=== PATIENT | female | born 1940 | race Caucasian/White ===

== ENCOUNTER 2018-10-20 08:50 | Day surgery (SDC) | payer MEDICARE ==
[2018-10-18 10:49] VITALS: BMI 29.2
[~2018-10-20 08:50] MED LIST: LACTATED RINGERS 1,000 ML IV SCH
[2018-10-20 09:13] VITALS: TEMP 98.7
[2018-10-20] MEDS ORDERED: LIDOCAINE 1% 20 ML VIAL (10MG/ML) FOR IV START INTRADERMA ONE (09:17)
[2018-10-20] MEDS ORDERED: PROPOFOL 10 MG/ML 20 ML VIAL IV ONE (09:27)
[2018-10-20] MEDS ORDERED: LIDOCAINE 1% INJ 10MG/ML (20 ML MDV) ONE (09:27)
--- NOTE | 2018-10-20 09:32 | P.GSHP ---
History of Present Illness H&P Date: 10/20/18 Chief Complaint: gerd 78-year-old female here today for upper endoscopy. Patient is a history of hiatal hernia, reflux, and Wolff's esophagus. Last upper endoscopy 4 years ago. 2 brothers have passed with esophageal cancer. Past Medical History Past Medical History: GERD/Reflux, Osteoarthritis (OA), Pneumonia, Thyroid Disorder Additional Past Medical History / Comment(s): hx migraines, hiatal hernia, IBS, hx anemia, "low sodium", "retocecal appendix" History of Any Multi-Drug Resistant Organisms: None Reported Past Surgical History: Cholecystectomy, Hysterectomy, Tonsillectomy Additional Past Surgical History / Comment(s): D&C x 3, florentino cataracts Past Anesthesia/Blood Transfusion Reactions: Motion Sickness Smoking Status: Never smoker - Past Family History Brother(s) Family Medical History: Cancer Mother Family Medical History: Cancer Medications and Allergies Home Medications Medication Instructions Recorded Confirmed Type Atorvastatin [Lipitor] 10 mg PO DAILY 10/18/18 10/20/18 History Cholecalciferol (Vitamin D3) 5,000 unit PO DAILY 10/18/18 10/20/18 History [Vitamin D3] FLUoxetine HCL [PROzac] 20 mg PO BID 10/18/18 10/20/18 History Levothyroxine Sodium [Levoxyl] 100 mcg PO DAILY 10/18/18 10/20/18 History Multivit-Min/Iron/Folic/Lutein 1 each PO DAILY 10/18/18 10/20/18 History [Centrum Silver Women Tablet] Omeprazole [PriLOSEC] 20 mg PO BID 10/18/18 10/20/18 History Propranolol [Inderal] 20 mg PO BID 10/18/18 10/20/18 History clonazePAM 0.25 mg PO BID 10/18/18 10/20/18 History traZODone HCL 100 mg PO HS 10/18/18 10/20/18 History Allergies Allergy/AdvReac Type Severity Reaction Status Date / Time No Known Allergies Allergy Verified 10/18/18 10:36 Surgical - Exam Vital Signs Temp Pulse Resp BP Pulse Ox 98.7 F 78 16 139/63 96 10/20/18 09:06 10/20/18 09:06 10/20/18 09:06 10/20/18 09:06 10/20/18 09:06 Physical exam: General: Well-developed, well-nourished HEENT: Normocephalic, sclerae nonicteric Abdomen: Nontender, nondistended Extremities: No edema Neuro: Alert and oriented Assessment and Plan (1) GERD (gastroesophageal reflux disease) Narrative/Plan: Will proceed with upper endoscopy at this time Current Visit: Yes Status: Acute Code(s): K21.9 - GASTRO-ESOPHAGEAL REFLUX DISEASE WITHOUT ESOPHAGITIS SNOMED Code(s): 586799699
--- NOTE | 2018-10-20 09:49 | P.PCN ---
Date of Procedure: 10/20/18 Procedure(s) Performed: Preoperative Dx: GERD, Wolff's Postoperative Dx: Gastritis, hiatal hernia, Wolff's esophagus Procedure: EGD with Bx Anesthesia: Sedation Endoscopist: Dr. Escobar Specimens: Antrum, Wolff's Endoscopic Procedure: The patient was on the endoscopy table in the left decubitus position. The Olympus gastroscope was inserted into the oropharynx and passed under direct visualization to the region of the third portion of the duodenum. From that point the scope was slowly withdrawn inspecting all surfaces carefully. There were no neoplastic inflammatory or polypoid lesions throughout the duodenum. The pylorus was widely patent. The stomach was carefully inspected. There was gastritis present. A biopsy of the antrum took place to rule out H. pylori. Retroflexion revealed a moderate sized hiatal hernia. The diaphragmatic hiatus was present at 39 cm while the GE junction was present at 34 cm. There was no inflammatory changes above the diaphragm in the stomach. The patient had evidence of Wolff's esophagus. This was free of acute inflammatory changes or nodularity. There were no ulcers. This measured approximately 3 cm in length. Circumferential biopsies were taken in 4 quadrants every centimeter. Specimens were sent to pathology. The remainder the esophagus appeared normal. The patient was then taken to the recovery room in stable condition per anesthesia guidelines. Recommendations: Await biopsy results. Continue antiacid therapy.
[2018-10-20 09:53] VITALS: RESP 18
[2018-10-20 10:11] VITALS: BP 132/65; PULSE 54
== END 2018-10-20 10:34 | disposition home or self-care (01) ==
LOC: ORWHC2ENDO 08:50
PROVIDERS: ATTEND Surgery
DX: K22.70 Barrett's esophagus without dysplasia (principal); K44.9 Diaphragmatic hernia without obstruction or gangrene; K29.50 Unspecified chronic gastritis without bleeding; E07.9 Disorder of thyroid, unspecified; K21.9 Gastro-esophageal reflux disease without esophagitis; K58.9 Irritable bowel syndrome, unspecified; M19.90 Unspecified osteoarthritis, unspecified site; Z80.0 Family history of malignant neoplasm of digestive organs; Z90.49 Acquired absence of other specified parts of digestive tract; Z98.42 Cataract extraction status, left eye; Z98.41 Cataract extraction status, right eye; Z79.899 Other long term (current) drug therapy
CPT/HCPCS: 88305; 43239; J2001; J2704

== ENCOUNTER → 2020-08-29 | Day surgery (SDC) | payer MEDICARE ==
[2020-08-28 10:15] VITALS: BMI 28.3
[~2020-08-29] MED LIST changes: +LIDOCAINE 2% (PF) 20 MG/ML 5 ML VIAL ONE; +PROPOFOL 10 MG/ML 20 ML VIAL IV ONE
[2020-08-29 11:07] VITALS: TEMP 97
--- NOTE | 2020-08-29 11:42 | P.PCN ---
Date of Procedure: 08/29/20 Procedure(s) Performed: BRIEF HISTORY: Patient is a 80-year-old, pleasant, white female scheduled for an upper endoscopy as a part of evaluation of GERD and Wolff's esophagus. She remains on Prilosec 20 mg daily. PROCEDURE PERFORMED: Esophagogastroduodenoscopy with biopsy. PREOPERATIVE DIAGNOSIS: GERD/Wolff's esophagus. IV sedation per anesthesia. PROCEDURE: After informed consent was obtained, the patient was brought into the endoscopy unit. IV sedation was administered by Anesthesia under continuous monitoring. Initially the Olympus GIF-140 video endoscope was inserted into the mouth. Esophagus intubated without any difficulty. It was gradually advanced into the stomach and duodenum and carefully examined. The bulb and the second part of the duodenum appeared normal. The scope at this time was withdrawn to the stomach, adequately insufflated with air, and upon careful examination, mucosa of the antrum, body, cardia and the fundus appeared normal. There was a moderate size paraesophageal hiatal hernia noted. The scope was withdrawn into the esophagus. The GE junction was located at 31 cm from the incisors. There was a long segment Wolff's esophagus extending from 20-31 cm from the incisors and multiple biopsies were done in this area to rule out dysplasia. There was no ulceration or nodularity identified. The esophagus appeared normal. There were no erosions or ulcerations seen and the patient tolerated the procedure well. IMPRESSION: 1. Long segment Wolff's esophagus extending from 27-31 cm from the incisors status post multiple biopsies to rule out dysplasia 2. Moderate size paraesophageal hiatal hernia.. RECOMMENDATIONS: The findings of this examination were discussed with the patient as well as a family. She was advised to follow with the biopsy results. She will continue with omeprazole 20 mg daily and follow antireflux. If the biopsy does not show any evidence of dysphagia she can have a repeat upper endoscopy in 2-3 years.
[2020-08-29 11:49] VITALS: RESP 17
[2020-08-29 12:04] VITALS: BP 166/79; PULSE 56
== END ==
LOC: ORWHC2ENDO 09:42
PROVIDERS: ATTEND Internal Medicine Gastroenterology
DX: K22.70 Barrett's esophagus without dysplasia (principal); K44.9 Diaphragmatic hernia without obstruction or gangrene; K21.9 Gastro-esophageal reflux disease without esophagitis; I10 Essential (primary) hypertension; E78.5 Hyperlipidemia, unspecified; E07.9 Disorder of thyroid, unspecified; F32.9 Major depressive disorder, single episode, unspecified; Z90.49 Acquired absence of other specified parts of digestive tract; Z98.42 Cataract extraction status, left eye; Z98.41 Cataract extraction status, right eye; Z79.899 Other long term (current) drug therapy
CPT/HCPCS: 88305; 43239; J2704; J2001